=== PATIENT | male | born 1965 | race Caucasian/White ===

== ENCOUNTER 2021-06-25 10:08 | Outpatient (CLI) | payer MEDICARE, SELFPAY ==
--- NOTE | 2021-06-25 10:14 | CT_ITS ---
WS: [id number] LDCT LUNG CANCER SCREENING TECHNIQUE: Noncontrast CT of the chest with coronal and sagittal reformatted images. CLINICAL INFORMATION: NICOTINE DEPENDENCE,CIGARETTES COMPARISON: CT chest 2 26,015 DLP: 62.9 mGy.cm DIvol: 1.[address] scans at [facility] use at least one of these dose optimization techniques: automat ed exposure control; mA and/or kV adjustment per patient size (includes targeted exams where dose is matched to clinical indication); or iterative reconstruction. FINDINGS: Moderate chronic emphysematous changes. No acute pulmonary infiltrates. No suspicious pulmonary opaci ties. Aortic calcification. Coronary calcification. No mediastinal or hilar lymphadenopathy. Normal G E junction. No axillary lymphadenopathy. CT/CT lung screening [id number] IMPRESSION: LUNG-RADS: 2-Benign Appearance or Behavior FOLLOW UP: 12 Month: Continue annual screening with LDCT
== END 2021-06-25 10:09 | disposition home or self-care (01) ==
PROVIDERS: PCP Internal Medicine; Visit Provider Internal Medicine
DX: Z12.2 Encounter for screening for malignant neoplasm of respiratory organs (principal); F17.210 Nicotine dependence, cigarettes, uncomplicated
CPT/HCPCS: 71271

== ENCOUNTER → 2021-12-31 11:15 | Outpatient (BNVA) | payer MEDICARE, SELFPAY | PROVIDERS: PCP Internal Medicine; Visit Provider Surgery | DX: Z11.52 Encounter for screening for COVID-19 (principal) | CPT/HCPCS: 87635 ==

== ENCOUNTER 2022-03-21 07:04 | Day surgery (SDC) | payer MEDICARE, SELFPAY ==
[2022-01-01 13:40] VITALS: BMI 23.7
--- NOTE | 2022-03-21 06:30 | W.PM.OPSFHP ---
Same Day Surgery H&P Indication for Procedure/HPI DATE OF PROCEDURE: March 21, 2022 CHIEF COMPLAINT/INDICATIONFOR SURGICAL PROCEDURE: Screening colonoscopy PREOP DIAGNOSIS: Screening colonoscopy PLANNED PROCEDURE: Operation Date: 03/21/22 08:30 Proposed Procedures p Colonoscopy 22109 Z12.11(Not Applicable) - Andrea Payne MD This is a pleasant 56 years old gentleman referred to my practice for screening colonoscopy, patient never had, patient never had 1 before. Denies history of colon cancer, he was tested for occult blood in stool per his description but he had some sort of a trauma to the perianal area. Prior to that. Patient's heart rate is little bit elevated and anesthesia is working the patient up prior to the intervention. ROS All systems have been reviewed negative except as per the above or per problem list. Medications/Allergies* Home Medications Medication Instructions Recorded Confirmed Type atorvastatin 20 mg tablet 40 mg PO DAILY 10/05/21 03/21/22 History lisinopril 20 mg tablet 20 mg PO DAILY 10/05/21 03/21/22 History Allergies/Adverse Reactions Allergy/AdvReac Type Severity Reaction Status Date / Time No Known Allergies Allergy Verified 03/21/22 07:51 Pertinent Exam Findings alert, oriented x 3, clear to auscultation bilaterally, regular rate & rhythm and procedure specific exam findings (Abdominal examination nontender nondistended soft) Recommendations Surgery/Procedure today (Screening colonoscopy) Other Plans: Plan of care; After thorough history and physical examination and reviewing the chart, plan to perform screening colonoscopy. I discussed with the patient in details the risks,benefits,alternatives and indications.The risk of aspiration, bleeding, soft tissue injury, perforation of the colon and other potential concomitant complications were explained to the patient in details,also the potential need for Laproscoy/Laparotomy to repair any related complications including but not limited to colectomy and or Closotomy.The patient understood this well and did agree to proceed. Rationale was carefully and clearly discussed with the patient.Appropriate informed consent have been reviewed and signed All questions have been answered and all concerns have been addressed to patient's satisfaction. 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
[2022-03-21 07:25] VITALS: BP 126/89; PULSE 120; RESP 16; TEMP 37; O2SAT 97
[2022-03-21] MEDS: sodium chloride 0.9% 1,000 ML 30 ML IV (07:40)
--- NOTE | 2022-03-21 07:45 | ECG_ITS ---
[facility] Test Date: 2022-03-21 Pat Name: Duong Wilson Department: Room: Gender: Male [employer]: : 1965 Requested By: Beny Freeman Order Number: [id number] Tia MD: Clara Humphreys M.D. Measurements Intervals [place] Rate: 88 P: 81 MT: 148 QRS: 78 QRSD: 82 T: 78 QT: 338 QTc: 410 Interpretive Statements SINUS RHYTHM WITH SINUS ARRHYTHMIA Compared to ECG 01/06/2019 15:33:54 No significant changes Electronically Signed On 03-21-2022 16:45:33 CDT by Clara Humphreys M.D. [id number]
[2022-03-21 08:57] VITALS: BP 112/82; PULSE 93; RESP 18; TEMP 36.3; O2SAT 99
[2022-03-21 09:03] VITALS: BP 127/75; PULSE 98; RESP 18; TEMP 36.6; O2SAT 96
--- NOTE | 2022-03-21 09:27 | ANES.PREANE2 ---
Pre-Anesthetic Assessment Height/Weight: Height 1.88 m Weight 83.915 kg Temp Pulse Resp BP Pulse Ox 97.9 F 98 18 127/75 96 03/21/22 09:03 03/21/22 09:03 03/21/22 09:03 03/21/22 09:03 03/21/22 09:03 Preop Diagnosis: Screening colonoscopy Operation Date: 03/21/22 08:30 Proposed Procedures p Colonoscopy 10683 Z12.11(Not Applicable) - Andrea Payne MD Familial anesthetic complications: None Was Beta Navjot taken within 24 hours: N/A Was Clonidine taken within 24 hours: N/A Last intake: Intake Last Liquid Date 03/20/22 Last Liquid Time 23:30 Last Solid Date 03/19/22 Last Solid Time 21:30 Social Tobacco and No alcohol Exam alert, oriented x 3 and regular rate & rhythm Airway Submandibular: within normal limits Cervical ROM: within normal limits Mallampati: Class II Dentition: caps and partials Pulmonary Chronic Obstructive Pulmonary Disease CV/HEM Arrythmia (SVT), Coronary Artery Disease and Hypertension Metabolic Hyperlipidemia Anesthetic Plan ASA status: 3 Anesthesia: MAC Medications/Allergies Home Medications Medication Instructions Recorded Confirmed Last Taken Type atorvastatin 20 mg tablet 40 mg PO DAILY 10/05/21 03/21/22 03/20/22 History lisinopril 20 mg tablet 20 mg PO DAILY 10/05/21 03/21/22 03/20/22 History Allergies Allergy/AdvReac Type Severity Reaction Status Date / Time No Known Allergies Allergy Verified 03/21/22 07:51 Data Anesthesia Cardiac Studies: No Data to Display
--- NOTE | 2022-03-21 14:50 | ANE.PACU2 ---
Inpatient post-anesthesia follow up: Airway intact: Yes Vital signs: Temperature 97.9 F Pulse Rate 98 Respiratory Rate 18 Blood Pressure 127/75 Pulse Oximetry 96 Oxygen Delivery Me thod Room Air Oxygen Flow Rate Fraction of Inspir ed Oxygen Hydration adequate: Yes Nausea and vomiting: No Pain level: 1 Mental status: Baseline
== END 2022-03-21 09:17 | disposition home or self-care (01) ==
PROVIDERS: PCP Internal Medicine; Visit Provider Surgery
PROC: 0DJD8ZZ Inspection of Lower Intestinal Tract, Via Natural or Artificial Opening Endoscopic (ICD-10-PCS; CPT 45378; principal; 2022-03-21 08:30)
DX: Z12.11 Encounter for screening for malignant neoplasm of colon (principal); K57.30 Diverticulosis of large intestine without perforation or abscess without bleeding; D12.5 Benign neoplasm of sigmoid colon; J44.9 Chronic obstructive pulmonary disease, unspecified; I25.10 Atherosclerotic heart disease of native coronary artery without angina pectoris; I10 Essential (primary) hypertension; E78.5 Hyperlipidemia, unspecified
CPT/HCPCS: 45385; 88305; 93005; J2704; J7030

== ENCOUNTER 2022-06-28 09:57 | Outpatient (CLI) | payer MEDICARE, SELFPAY ==
--- NOTE | 2022-06-28 10:14 | CT_ITS ---
WS: [id number] LDCT LUNG CANCER SCREENING TECHNIQUE: Noncontrast CT of the chest with coronal and sagittal reformatted images. CLINICAL INFORMATION: HX OF TOBACCO USE COMPARISON: CT June 25, 2021 DLP: 86.60 mGy.cm DIvol: Mean CTDIvol: 1.60 (mGy) All CT scans at [facility] use at least one of these dose optimization techniques: automat ed exposure control; mA and/or kV adjustment per patient size (includes targeted exams where dose is matched to clinical indication); or iterative reconstruction. FINDINGS: Moderate chronic emphysematous changes. No acute pulmonary infiltrates. No suspicious pulmonary paren chymal opacities. No mediastinal or hilar lymphadenopathy. Calcified granuloma LEFT lower lobe. Normal caliber thoracic aorta. Calcified LEFT hilar and subcarinal lymph nodes. Splenic granulomas. A ortic and coronary calcification. Normal GE junction. No axillary lymphadenopathy. Mild thoracic cur ve. Postoperative changes lower cervical spine. CT/CT lung screening [id number] IMPRESSION: LUNG-RADS: 1-Negative FOLLOW UP: 12 Month: Continue annual screening with LDCT
== END 2022-06-28 09:58 | disposition home or self-care (01) ==
LOC: RAD 09:59
PROVIDERS: PCP Internal Medicine; Visit Provider Internal Medicine
DX: Z12.2 Encounter for screening for malignant neoplasm of respiratory organs (principal); F17.218 Nicotine dependence, cigarettes, with other nicotine-induced disorders
CPT/HCPCS: 71271

== ENCOUNTER 2023-01-08 10:39 | Outpatient (CLI) | payer MEDICARE, SELFPAY ==
[2023-01-08 10:58] VITALS: PULSE 107; RESP 18; O2SAT 97
[2023-01-08 11:03] VITALS: PULSE 105
== END 2023-01-08 10:40 | disposition home or self-care (01) ==
PROVIDERS: PCP Internal Medicine; Visit Provider Internal Medicine
DX: J44.9 Chronic obstructive pulmonary disease, unspecified (principal)
CPT/HCPCS: 94060; J7613

== ENCOUNTER 2023-08-06 10:56 | Outpatient (CLI) | payer MEDICARE, SELFPAY ==
--- NOTE | 2023-08-06 11:09 | CT_ITS ---
WS: [id number] LDCT LUNG CANCER SCREENING HISTORY: NICOTINE DEPENDENCE, CIGARETTES TECHNIQUE: Axial imaging performed from the apices to 1 cm below the costophrenic angles. Coronal and sagittal reformats are submitted with axial MIP series. All CT scans at [facility] use at least one of these dose optimization techniques: automated exposure control; mA and/or kV adjustment per patient size (includes targeted exams where dose is matched to clinical indication); or iterativ e reconstruction. DLP: 52.91 mGy.cm DIvol: Mean CTDIvol: 0.80 (mGy) COMPARISON: 06/28/2022 Diagnostic quality: Satisfactory Lungs: No suspicious mass or pulmonary nodule. There are a few scattered benign granulomata. Moderate chronic emphysematous changes. Paraseptal emphysema. No endobronchial lesions. Heart: Normal size heart with no pericardial effusion.. Other findings: Moderate atherosclerosis aorta. No mediastinal or hilar adenopathy. Splenic granuloma ta. No adrenal mass. IMPRESSION: CT/CT lung screening [id number] LUNG-RADS: 1-Negative FOLLOW UP: 12 Month: Continue annual screening with LDCT OTHER FINDINGS (S MODIFIER): None.
== END 2023-08-06 10:57 | disposition home or self-care (01) ==
LOC: RAD 11:00
PROVIDERS: PCP Internal Medicine; Visit Provider Internal Medicine
DX: Z12.2 Encounter for screening for malignant neoplasm of respiratory organs (principal); F17.210 Nicotine dependence, cigarettes, uncomplicated
CPT/HCPCS: 71271

== ENCOUNTER 2024-09-09 08:48 | Outpatient (CLI) | payer MEDICARE, SELFPAY ==
--- NOTE | 2024-09-09 08:56 | CT_ITS ---
WS: [id number] LDCT LUNG CANCER SCREENING TECHNIQUE: Noncontrast CT of the chest with coronal and sagittal reformatted images. CLINICAL INFORMATION: NICOTINE DEPENDENCE,CIGARETTES COMPARISON: 2022 DLP: 60.50 mGy.cm DIvol: Mean CTDIvol: 0.90 (mGy) All CT scans at [facility] use at least one of these dose optimization techniques: automat ed exposure control; mA and/or kV adjustment per patient size (includes targeted exams where dose is matched to clinical indication); or iterative reconstruction. FINDINGS: Aortic calcification. Coronary calcification. No mediastinal or hilar lymphadenopathy. No axillary ly mphadenopathy. Adrenal glands are normal. Splenic granulomas. Normal GE junction. Mild chronic emphys ematous changes. Calcified granuloma RIGHT lower lobe. Calcified granuloma LEFT upper lobe. Tiny 2 mm nodule LEFT lower lobe. No new suspicious pulmonary parenchymal abnormalities. CT/CT lung screening [id number] IMPRESSION: LUNG-RADS: 2-Benign Appearance or Behavior FOLLOW UP: 12 Month: Continue annual screening with LDCT
== END 2024-09-09 08:49 | disposition home or self-care (01) ==
LOC: RAD 08:49
PROVIDERS: PCP Internal Medicine; Visit Provider Internal Medicine
DX: Z12.2 Encounter for screening for malignant neoplasm of respiratory organs (principal); F17.210 Nicotine dependence, cigarettes, uncomplicated; I70.0 Atherosclerosis of aorta; I25.84 Coronary atherosclerosis due to calcified coronary lesion; D73.89 Other diseases of spleen; J84.10 Pulmonary fibrosis, unspecified; R91.1 Solitary pulmonary nodule
CPT/HCPCS: 71271

== ENCOUNTER 2025-03-29 08:57 | Outpatient (CLI) | payer MEDICARE, SELFPAY ==
--- NOTE | 2025-03-29 09:08 | XRR_ITS ---
PROCEDURE INFORMATION: Exam: XR Left Hip Exam date and time: 03/29/2025 9:14 AM Age: 59 years old Clinical indication: Hip pain; Left hip; Additional info: Pain of left hip joint TECHNIQUE: Imaging protocol: Radiologic exam of the left hip. Views: 2 or 3 views hip with pelvis when performed. AP 1 view pelvis with 2 views hip COMPARISON: No relevant prior studies available. FINDINGS: Bones/joints: The visualized sacral arches appear intact. Bony structures appear otherwise unremarkable. No visualized evidence for acute bony fracture or dislocation. Soft tissues: Unremarkable. Vasculature: [id number] diffuse atherosclerotic arterial vascular wall calcifications are demonstrated. Notes: If there is further concern, recommend follow-up radiographs or bone scan for complete assessment. XR/XR hip LT 2-3V wo/w pel* [id number] IMPRESSION: 1. No acute bony findings. 2. Arterial vascular calcifications.
== END 2025-03-29 08:58 | disposition home or self-care (01) ==
PROVIDERS: PCP Internal Medicine; Visit Provider Internal Medicine
DX: M25.552 Pain in left hip (principal); I70.90 Unspecified atherosclerosis
CPT/HCPCS: 73502